=== PATIENT | female | born 1990 | race African-American/Black ===

== ENCOUNTER 2019-10-31 12:32 | Emergency (ER) | payer MEDICAID ==
[2019-10-31] MEDS ORDERED: RINGERS SOLUTION,LACTATED 1,000 ML IV ONE ×2 (12:54→14:43)
[2019-10-31] MEDS ORDERED: METOCLOPRAMIDE HCL INJ/PF 10 MG/2 ML SDV IV ONE ×2 (12:54→14:43)
--- NOTE | 2019-10-31 12:55 | ER Document Report ---
ED Medical Screen (RME) - General Chief Complaint: Nausea/Vomiting Stated Complaint: NAUSEA/VOMITING Time Seen by Provider: 10/31/19 12:50 Mode of Arrival: Wheelchair Information source: Patient Notes: 29-year-old female presents emergency department with possibly 2 months with reports she has been nausea vomiting for the past 3 weeks nonstop. She reports she was here recently and has not quit vomiting since that time. Patient complains of lower abdominal pain. I have greeted and performed a rapid initial assessment of this patient. A comprehensive ED assessment and evaluation of the patient, analysis of test results and completion of the medical decision making process will be conducted by additional ED providers. - Related Data Allergies/Adverse Reactions: No Known Allergies Allergy (Verified 10/31/19 12:50) Physical Exam - Vital signs Vitals: Temp Pulse Resp BP Pulse Ox 99.3 F 83 20 101/45 L 98 10/31/19 12:46 10/31/19 12:46 10/31/19 12:46 10/31/19 12:46 10/31/19 12:46 Course - Vital Signs Vital signs: Temp Pulse Resp BP Pulse Ox 99.3 F 83 20 101/45 L 98 10/31/19 12:46 10/31/19 12:46 10/31/19 12:46 10/31/19 12:46 10/31/19 12:46
[2019-10-31 13:29] LABS: ABSOLUTE LYMPHOCYTES (AUTO) 0.6 10^3/uL (0.5-4.7); ABSOLUTE MONOCYTES (AUTO) 0.3 10^3/uL (0.1-1.4); ABSOLUTE NEUT (AUTO) 1.7 10^3/uL (1.7-8.2); BASOPHILS % (AUTO) 0.7 % (0-2); EOSINOPHILS % (AUTO) 0.5 % (0-6); HEMOGLOBIN 11.1 g/dL (12.0-15.5); LYMPHOCYTES % (AUTO) 23.7 % (13-45); MEAN CORPUSCULAR HEMOGLOBIN 25.4 pg (27.0-33.4); MEAN CORPUSCULAR HGB CONC 32.8 g/dL (32.0-36.0); MEAN CORPUSCULAR VOLUME 77 fl (80-97); MONOCYTES % (AUTO) 11.9 % (3-13); PLATELET COUNT 131 10^3/uL (150-450); RED CELL DISTRIBUTION WIDTH 20.4 % (11.5-14.0); SEGMENTED NEUTROPHILS % (AUTO) 63.2 % (42-78); TOTAL CELLS COUNTED % (AUTO) 100 %; WHITE BLOOD COUNT 2.7 10^3/uL (4.0-10.5)
[2019-10-31 13:48] LABS: ALBUMIN 4.2 g/dL (3.5-5.0); ALKALINE PHOSPHATASE 59 U/L (38-126); ANION GAP 11 (5-19); ASPARTATE AMINO TRANSFERASE 27 U/L (14-36); BILIRUBIN,DIRECT 0.3 mg/dL (0.0-0.4); BILIRUBIN,TOTAL 0.4 mg/dL (0.2-1.3); BLOOD UREA NITROGEN 6 mg/dL (7-20); CALCIUM 9.5 mg/dL (8.4-10.2); CARBON DIOXIDE 24 mmol/L (22-30); CHLORIDE 98 mmol/L (98-107); GLUCOSE 80 mg/dL (75-110); POTASSIUM 4.6 mmol/L (3.6-5.0); TOTAL PROTEIN 8.1 g/dL (6.3-8.2)
[2019-10-31] MEDS ORDERED: ACETAMINOPHEN 325 MG TABLET PO ONE (14:43)
[2019-10-31] MEDS ORDERED: DIPHENHYDRAMINE HCL 50 MG/ML VIAL IV ONE (14:43)
--- NOTE | 2019-10-31 15:48 | ER Document Report ---
ED GI/ - General Chief Complaint: Nausea/Vomiting Stated Complaint: NAUSEA/VOMITING Time Seen by Provider: 10/31/19 12:50 Mode of Arrival: Wheelchair Information source: Patient Notes: Patient presents complaining of nausea vomiting for 3 weeks. Patient states she is about 2 months at this time. Patient reports diarrhea over the past few days. Patient states she had headache that started yesterday. Patient denies any fever. Patient does complain of lower abdominal cramping. Patient has not had any care. Patient denies any urinary symptoms or concerns about STI. TRAVEL OUTSIDE OF THE [place] IN LAST 30 DAYS: No - HPI Patient complains to provider of: Pelvic pain, , Vomiting. No: Vaginal bleeding, Vaginal discharge Onset: Other - 3 weeks Timing/Duration: Persistent Quality of pain: Cramping Pain Level: 2 Location: Pelvis Vaginal bleeding (Compared to normal period): None Menstrual period history: Associated symptoms: Diarrhea, Nausea, Vomiting. denies: Dysuria, Fever, Urinar y hesitancy, Urinary frequency, Urinary retention, Urinary urgency Exacerbated by: Denies Relieved by: Denies Similar symptoms previously: No Recently seen / treated by doctor: No - Related Data Allergies/Adverse Reactions: No Known Allergies Allergy (Verified 10/31/19 12:50) Past Medical History - General Information source: Patient - Social History Smoking Status: Never Smoker Chew tobacco use (# tins/day): No Frequency of alcohol use: None Drug Abuse: None Occupation: None Lives with: Family Family History: Reviewed & Not Pertinent Patient has suicidal ideation: No Patient has homicidal ideation: No - Medical History Medical History: Negative Surgical Hx: Negative Review of Systems - Review of Systems Constitutional: No symptoms reported. denies: Fever, Recent illness EENT: No symptoms reported Cardiovascular: No symptoms reported Respiratory: No symptoms reported. denies: Cough Gastrointestinal: Abdominal pain, Diarrhea, Nausea, Vomiting Genitourinary: No symptoms reported. denies: Dysuria, Flank pain Female Genitourinary: . denies: Vaginal discharge, Vaginal bleeding Musculoskeletal: Back pain Skin: No symptoms reported Hematologic/Lymphatic: No symptoms reported Neurological/Psychological: No symptoms reported Physical Exam - Vital signs Vitals: Temp Pulse Resp BP Pulse Ox 99.3 F 83 20 101/45 L 98 10/31/19 12:46 10/31/19 12:46 10/31/19 12:46 10/31/19 12:46 10/31/19 12:46 - General General appearance: Appears well - HEENT Head: Normocephalic, Atraumatic Eyes: Normal Conjunctiva: Normal Nasal: Normal Mucous membranes: Normal Pharynx: Normal Neck: Normal, Supple. No: Lymphadenopathy - Respiratory Respiratory status: No respiratory distress Chest status: Nontender Breath sounds: Normal. No: Rales, Rhonchi, Stridor, Wheezing Chest palpation: Normal - Cardiovascular Rhythm: Regular Heart sounds: S1 appreciated, S2 appreciated Murmur: No - Abdominal Inspection: Normal Distension: No distension Bowel sounds: Normal Tenderness: Tender - lower pelvic Organomegaly: No organomegaly - Back Back: Tender - Lower lumbar paraspinal tenderness - Extremities General upper extremity: Normal inspection, Normal strength General lower extremity: Normal inspection, Normal strength - Neurological Neuro grossly intact: Yes Cognition: Normal Williams Coma Scale Eye Opening: Spontaneous Williams Coma Scale Verbal: Oriented Williams Coma Scale Motor: Obeys Commands Williams Coma Scale Total: 15 - Psychological Associated symptoms: Normal affect, Normal mood - Skin Skin Temperature: Warm Skin Moisture: Dry Skin Color: Normal Course - Re-evaluation Re-evalutation: 10/31/19 16:57 Patient's abdomen soft, no guarding. Patient without any emesis or diarrhea while here. Will give patient prescription for nausea medication at this time. Patient encouraged to follow-up with an PLEATING SUPERVISOR to establish care. Patient presents with abdominal pain without signs of peritonitis or other life- threatening or serious etiology. Patient appears stable for discharge and has been instructed to return immediately if the symptoms worsen in any way. - Vital Signs Vital signs: Temp Pulse Resp BP Pulse Ox 99.3 F 83 20 101/45 L 98 10/31/19 12:46 10/31/19 12:46 10/31/19 12:46 10/31/19 12:46 10/31/19 12:46 - Laboratory Result Diagrams: 10/31/19 13:15 10/31/19 13:15 Laboratory results interpreted by me: 10/31/19 10/31/19 10/31/19 13:15 13:15 15:55 WBC 2.7 L Hgb 11.1 L Hct 34.0 L MCV 77 L MCH 25.4 L RDW 20.4 H Plt Count 131 L Sodium 133.4 L BUN 6 L Beta HCG, Quant 842864.00 H Urine Ketones TRACE H Urine Ascorbic Acid 40 H 10/31/19 15:59 Labs- Entire Visit 10/31/19 10/31/19 13:15 13:15 WBC 2.7 L RBC 4.40 Hgb 11.1 L Hct 34.0 L MCV 77 L MCH 25.4 L MCHC 32.8 RDW 20.4 H Plt Count 131 L Lymph % (Auto) 23.7 [place] % (Auto) 11.9 Eos % (Auto) 0.5 Baso % (Auto) 0.7 Absolute Neuts (auto) 1.7 Absolute Lymphs (auto) 0.6 Absolute Monos (auto) 0.3 Absolute Eos (auto) 0.0 Absolute Basos (auto) 0.0 Seg Neutrophils % 63.2 Sodium 133.4 L Potassium 4.6 Chloride 98 Carbon Dioxide 24 Anion Gap 11 BUN 6 L Creatinine 0.72 Est GFR ( Amer) > 60 Est GFR (MDRD) Non-Af > 60 Glucose 80 Calcium 9.5 Total Bilirubin 0.4 Direct Bilirubin 0.3 Neonat Total Bilirubin Not Reportable Neonat Direct Bilirubin Not Reportable Neonat Indirect Bili Not Reportable AST 27 ALT 17 Alkaline Phosphatase 59 Total Protein 8.1 Albumin 4.2 Beta HCG, Quant 668223.00 H Total Beta HCG POSITIVE 10/31/19 16:57 Labs- Entire Visit 10/31/19 10/31/19 10/31/19 13:15 13:15 15:55 WBC 2.7 L RBC 4.40 Hgb 11.1 L Hct 34.0 L MCV 77 L MCH 25.4 L MCHC 32.8 RDW 20.4 H Plt Count 131 L Lymph % (Auto) 23.7 [place] % (Auto) 11.9 Eos % (Auto) 0.5 Baso % (Auto) 0.7 Absolute Neuts (auto) 1.7 Absolute Lymphs (auto) 0.6 Absolute Monos (auto) 0.3 Absolute Eos (auto) 0.0 Absolute Basos (auto) 0.0 Seg Neutrophils % 63.2 Sodium 133.4 L Potassium 4.6 Chloride 98 Carbon Dioxide 24 Anion Gap 11 BUN 6 L Creatinine 0.72 Est GFR ( Amer) > 60 Est GFR (MDRD) Non-Af > 60 Glucose 80 Calcium 9.5 Total Bilirubin 0.4 Direct Bilirubin 0.3 Neonat Total Bilirubin Not Reportable Neonat Direct Bilirubin Not Reportable Neonat Indirect Bili Not Reportable AST 27 ALT 17 Alkaline Phosphatase 59 Total Protein 8.1 Albumin 4.2 Beta HCG, Quant 303312.00 H Total Beta HCG POSITIVE Urine Color YELLOW Urine Appearance SLIGHTLY-CLOUDY Urine pH 7.0 Ur Specific Yoder 1.015 Urine Protein NEGATIVE Urine Glucose (UA) NEGATIVE Urine Ketones TRACE H Urine Blood NEGATIVE Urine Nitrite NEGATIVE Urine Bilirubin NEGATIVE Urine Urobilinogen NEGATIVE Ur Leukocyte Esterase NEGATIVE Urine WBC (Auto) 2 Urine RBC (Auto) 0 U Hyaline Cast (Auto) 1 Urine Bacteria (Auto) TRACE Squamous Epi Cells Auto 7 Urine Mucus (Auto) OCC Urine Ascorbic Acid 40 H - Diagnostic Test Radiology reviewed: Reports reviewed Discharge - Discharge Clinical Impression: Nausea vomiting and diarrhea Qualifiers: Weeks of gestation: 13 weeks Qualified Code(s): Z3A.13 - 13 weeks gestation of Headache Qualifiers: Headache type: unspecified Headache chronicity pattern: unspecified pattern Intractability: not intractable Qualified Code(s): R51 - Headache Condition: Stable Disposition: HOME, SELF-CARE Instructions: Intravenous (IV) Fluids ([facility]), Antinausea Medication ([facility]), Vomiting ([facility]), Diarrhea, Nonspecific ([facility]), Viral Syndrome ([facility]), Headache ([facility]), Acetaminophen Additional Instructions: Return immediately for any new or worsening symptoms Followup with your primary care provider, call tomorrow to make a followup appointment Follow-up with an PLEATING SUPERVISOR to establish care Prescriptions: Promethazine HCl [Phenergan 25 mg Tablet] 25 mg PO Q6H PRN #10 tablet PRN Reason: [facility] - Follow up as needed [facility] [Provider Group] - Follow up as needed
[2019-10-31 16:23] LABS: APPEARANCE,URINE SLIGHTLY-CLOUDY; BILIRUBIN,URINE NEGATIVE (NEGATIVE); COLOR,URINE YELLOW; GLUCOSE, URINE NEGATIVE (NEGATIVE); KETONES,URINE TRACE mg/dL (NEGATIVE); LEUKOCYTE ESTERASE,URINE NEGATIVE (NEGATIVE); NITRITE,URINE NEGATIVE (NEGATIVE); PROTEIN,URINE NEGATIVE (NEGATIVE); URINE SPECIFIC GRAVITY 1.015; UROBILINOGEN,URINE NEGATIVE mg/dL (<2.0)
--- NOTE | 2019-10-31 16:23 | RADIOLOGY REPORT (SQ) ---
EXAM DESCRIPTION: U/S [id number] TRNABD 1GES W/ODOP COMPLETED DATE/TIME: 10/31/2019 4:12 pm REASON FOR STUDY: preg abd pain COMPARISON: None. TECHNIQUE: Transabdominal static and realtime grayscale images acquired of the pelvis. Additional se lected spectral and color Doppler images recorded. All images stored on PACs. bHCG: Not applicable. CLINICAL DATES: Unknown LIMITATIONS: None. FINDINGS: FETUS: Single Living intrauterine . ULTRASOUND EGA: 13 weeks 0 days ULTRASOUND ANGIE: 05/07/2020 EFW: Not applicable less than 20 weeks. CRL: 6.9 cm FHR: 168 beats per minute. SURVEY: Too early to assess. AMNIOTIC FLUID: Adequate amount. PLACENTA: Posterior. Possible venous lakes. SUBCHORIONIC BLEED: No SIZE OF BLEED: Not applicable. UTERUS: No masses. No anomalies. CERVICAL LENGTH: 4.4 cm. Closed. RIGHT ADNEXA: Ovary not seen. No adnexal free fluid. No adnexal masses. LEFT ADNEXA: Ovary not seen. No adnexal free fluid. No adnexal masses. FREE FLUID: None. OTHER: No other significant finding. IMPRESSION: LIVING INTRAUTERINE . EGA 13 weeks 0 days Trimester of : First trimester - 0 to 13 weeks. TECHNICAL DOCUMENTATION: JOB ID: [id number]- All Rights Reserved rev-03/18 Reading location - IP/workstation name: [email or web address]
[2019-10-31 17:17] VITALS: BP 96/57
== END 2019-10-31 17:16 | disposition home or self-care (01) ==
LOC: EDBD 12:32 → ER 12:32
DX: O21.9 Vomiting of pregnancy, unspecified (principal); O26.891 Other specified pregnancy related conditions, first trimester; R19.7 Diarrhea, unspecified; R51 Headache; R10.30 Lower abdominal pain, unspecified; R10.2 Pelvic and perineal pain; Z3A.13 13 weeks gestation of pregnancy
CPT/HCPCS: 96376; 99284; 96361; 96374; 96375; 36415; 84702; 85025; 80053; 81001; 76801; J3490; J1200; J2765; J7120

== ENCOUNTER → 2020-01-03 | Outpatient (CLI) | payer MEDICAID ==
--- NOTE | 2020-01-03 17:09 | RADIOLOGY REPORT (SQ) ---
EXAM DESCRIPTION: U/S OB 14+ TRNABD 1GES W/O DOP COMPLETED DATE/TIME: 01/03/2020 3:15 pm REASON FOR STUDY: ENCTR FOR SUPERVISION OF OTHER NORMAL , 2ND TRIMESTER (Z34.82) Z34.82 EN COUNTER FOR SUPRVSN OF NORMAL , SECOND TRI COMPARISON: 10/31/2019 TECHNIQUE: Static and Dynamic grayscale imaging performed of gravid uterus using transabdominal appr oach. Additional selected color Doppler and spectral images recorded. All stored on PACS. LIMITATIONS: None. FINDINGS: FETUSES SEEN:1 EGA: 21 weeks 3 days Calculated using BPD,FL,HC,AC documented on images. No discrepancy with clinica l dates. ANGIE: 05/12/2020 EFW: 414 grams PERCENTILE: 26% URBANO: 12.4 cm. LVP equals 3.5 x 10.1 cm PLACENTA: Posterior PRESENTATION: Cephalic. ANATOMY: HEART RATE: 139 beats per minute. FOUR CHAMBER HEART: Visualized. THREE VESSEL CORD: Yes. CORD INSERTION: Visualized. KIDNEYS AND BLADDER: Visualized. Appear normal. STOMACH: Visualized. Appears normal. SPINE: Normal as visualized. BRAIN AND LATERAL VENTRICLES: Visualized. Appear normal. OTHER: No other significant finding. MATERNAL ADNEXA: Maternal ovaries not visualized due to overlying bowel gas. CERVICAL LENGTH: 2.3 cm Closed. OTHER: No other significant finding. IMPRESSION: LIVING INTRAUTERINE . ESTIMATED GESTATIONAL AGE: 21 weeks 3 days NO VISUALIZED ANOMALIES. Trimester of : Second trimester - 13 weeks 1 day to 27 weeks 6 days. TECHNICAL DOCUMENTATION: JOB ID: [id number] [employer]- All Rights Reserved Reading location - IP/workstation name: [email or web address]
== END ==
LOC: RAD 14:10
PROVIDERS: ATTEND Nurse Practitioner Family
DX: Z34.82 Encounter for supervision of other normal pregnancy, second trimester (principal); Z3A.21 21 weeks gestation of pregnancy
CPT/HCPCS: 76805

== ENCOUNTER 2020-01-10 14:34 | Outpatient (CLI) | payer MEDICAID ==
[2020-01-10] MEDS ORDERED: ACETAMINOPHEN 325 MG TABLET PO PRN (15:14)
[2020-01-10] MEDS ORDERED: ACETAMINOPHEN 325 MG TABLET ONE (15:23)
[2020-01-10 15:29] LABS: APPEARANCE,URINE TURBID; BILIRUBIN,URINE SMALL (NEGATIVE); COLOR,URINE YELLOW; GLUCOSE, URINE NEGATIVE (NEGATIVE); KETONES,URINE TRACE mg/dL (NEGATIVE); LEUKOCYTE ESTERASE,URINE TRACE (NEGATIVE); NITRITE,URINE POSITIVE (NEGATIVE); PROTEIN,URINE 100 mg/dL (NEGATIVE); URINE SPECIFIC GRAVITY 1.027
[2020-01-10 15:41] LABS: ADD MANUAL MICROSCOPIC YES
[2020-01-10 15:42] LABS: AMORPHOUS SEDIMENT,UR 3+; BACTERIA,URINE TRACE /HPF
[2020-01-10 16:03] LABS: URINE AMPHETAMINES SCREEN NEGATIVE; URINE BARBITURATES SCREEN NEGATIVE; URINE BENZODIAZEPINES SCREEN NEGATIVE; URINE METHADONE SCREEN NEGATIVE; URINE PHENCYCLIDINE SCREEN NEGATIVE
[2020-01-10 16:16] LABS: URINE COCAINE SCREEN UNCONFIRMED POSITIVE; URINE MARIJUANA (THC) SCREEN UNCONFIRMED POSITIVE
[2020-01-10 16:19] LABS: BACTERIA (WET MOUNT) 4+ BACTERIA SEEN; EPITHELIALS (WET MOUNT) 3+ EPITHELIALS SEEN; RBCS (WET MOUNT) RARE RBCS SEEN; T.VAGINALIS (WET MOUNT) TRICHOMONAS SEEN; WBCS (WET MOUNT) 1+ WBCS SEEN; YEAST (WET MOUNT) NO YEAST SEEN
[2020-01-10] MEDS ORDERED: METRONIDAZOLE 500 MG/NS RTU 0 MG/0 ML RTUPB IV ONE (16:25)
[2020-01-10 16:35] LABS: A TYPE INFLUENZA AG NEGATIVE (NEGATIVE); B INFLUENZA AG NEGATIVE (NEGATIVE)
[2020-01-10 17:03] LABS: ABSOLUTE LYMPHOCYTES (AUTO) 0.9 10^3/uL (0.5-4.7); ABSOLUTE MONOCYTES (AUTO) 0.8 10^3/uL (0.1-1.4); ABSOLUTE NEUT (AUTO) 5.2 10^3/uL (1.7-8.2); BASOPHILS % (AUTO) 0.4 % (0-2); EOSINOPHILS % (AUTO) 0.1 % (0-6); HEMOGLOBIN 9.7 g/dL (12.0-15.5); LYMPHOCYTES % (AUTO) 13.7 % (13-45); MEAN CORPUSCULAR HEMOGLOBIN 26.6 pg (27.0-33.4); MEAN CORPUSCULAR HGB CONC 33.4 g/dL (32.0-36.0); MEAN CORPUSCULAR VOLUME 80 fl (80-97); MONOCYTES % (AUTO) 11.2 % (3-13); PLATELET COUNT 131 10^3/uL (150-450); RED BLOOD COUNT 3.65 10^6/uL (3.72-5.28); RED CELL DISTRIBUTION WIDTH 17.2 % (11.5-14.0); SEGMENTED NEUTROPHILS % (AUTO) 74.6 % (42-78); TOTAL CELLS COUNTED % (AUTO) 100 %; WHITE BLOOD COUNT 6.9 10^3/uL (4.0-10.5)
[2020-01-10] MEDS ORDERED: METRONIDAZOLE 500 MG TABLET PO ONE (17:29)
[2020-01-10] MEDS ORDERED: CEFTRIAXONE INJ 250 MG VIAL IV ONE (17:29)
[2020-01-10] MEDS ORDERED: METRONIDAZOLE 500 MG TABLET ONE (17:40)
[2020-01-10] MEDS ORDERED: CEFTRIAXONE INJ 1000 MG VIAL ONE (17:41)
[2020-01-10 17:42] LABS: CHLAM PCR NOT DETECTED (NOT DETECT)
== END 2020-01-10 19:33 | disposition home or self-care (01) ==
LOC: LC 14:34
PROVIDERS: ATTEND Student in an Organized Health Care Education/Training Program
PROC: 4A1HXCZ Monitoring of Products of Conception, Cardiac Rate, External Approach (ICD-10-PCS; principal; 2020-01-10)
DX: O23.42 Unspecified infection of urinary tract in pregnancy, second trimester (principal); O98.312 Other infections with a predominantly sexual mode of transmission complicating pregnancy, second trimester; A59.01 Trichomonal vulvovaginitis; Z3A.22 22 weeks gestation of pregnancy
CPT/HCPCS: 94760; 36415; 87210; 85025; 81001; 80307; 80353; 87491; 87591; 87804; 59899; Q0114; G0480 ×3; J3490 ×2; J0696; 80349